=== PATIENT | male | born 1955 | race Caucasian/White ===

== ENCOUNTER 2017-07-16 10:03 | Outpatient (CLI) | payer BC ==
[2017-07-16 13:17] LABS: #Eosinphils 0.6 thou/uL (0.0-0.7); #Lymphocytes 2.1 thou/uL (1.20-3.40); #Monocytes 0.9 thou/uL (0.11-0.59); #Neutrophils 6.4 thou/uL (1.40-6.50); %Basophils 0.3 % (0.0-1.0); %Eosinophils 5.9 % (0.0-10.0); %Lymphocytes 20.7 % (21.0-51.0); %Monocytes 8.8 % (0.0-10.0); Hematocrit 47.2 % (42.0-52.0); Mean Platelet Volume 8.9 fL (7.4-10.4)
[2017-07-16 13:41] LABS: Anion Gap 12 mmol/L (10-20); BUN (Urea Nitrogen) 24 mg/dL (8.4-25.7); Calc. Creatinine Clearance 0 mL/min (70-130); Calcium 9.8 mg/dL (7.8-10.44); Carbon Dioxide 26 mmol/L (23-31); Chloride 107 mmol/L (98-107); Estimated GFR-MDRD 57
== END 2017-07-16 10:04 | disposition home or self-care (01) ==
LOC: LABBT 10:03
PROVIDERS: ATTEND Specialist
DX: Z01.818 Encounter for other preprocedural examination (principal); K42.9 Umbilical hernia without obstruction or gangrene
CPT/HCPCS: 80048; 85025; 93005; 93010

== ENCOUNTER 2017-07-24 08:19 | Day surgery (SDC) | payer BC ==
--- NOTE | 2017-07-15 11:37 | HP ---
HISTORY OF PRESENT ILLNESS: Jakob Argueta is a 62-year-old male patient, who has an umbilical hernia, r eferred by Dr. Krystian Griggs. The patient first noticed about 3 years ago, but it has become bothersom e. I have suggested the patient obtain a colonoscopy, but repair of this hernia is not contingent o n this. 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 TOBACCO: Two cigars a month. Cigarettes not used for more than 10 years. ALCOHOL: Rarely. 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 PAST MEDICAL HISTORY: Hypertension. ALLERGIES: None. FAMILY HISTORY: He has a family history of PENICILLIN allergy, but does not have an allergy himself . REVIEW OF SYSTEMS: Ten point noncontributory otherwise. MEDICATIONS: Lisinopril/hydrochlorothiazide 20/12.5 once a day, amlodipine 5 mg once a day. PHYSICAL EXAMINATION: VITAL SIGNS: Weight 209 pounds, 75 inches, 37 BMI, 149/90, 95, 98.4 degrees. HEAD, EYES, EARS, NOSE, AND THROAT: Unremarkable. LUNGS: Clear to auscultation. CARDIAC: Regular rate and rhythm without murmur or gallop. ABDOMEN: Soft, nontender. Umbilical hernia present, reducible partially could not reduce completel y. Umbilical hernia is large with thinned out skin over it. EXTREMITIES: Unremarkable. ASSESSMENT AND PLAN: 1. Umbilical hernia. We would recommend repair probably using mesh. Risk of infection, bleeding, reoperation, recurrence hernia were explained. Reports weight reduction discussed. Suggested colon oscopy, if he could obtain prior or after, he will obtain this probably before. 2. Hypertension. 3. Obesity.
[2017-07-16 10:29] VITALS: BMI 37.2
[2017-07-24] MEDS ORDERED: Ketorolac Tromethamine 30 MG/ML VIAL ONE (09:35)
[2017-07-24] MEDS ORDERED: Bupivacaine 0.25% HCL 30 ML VIAL ONE (10:06)
[2017-07-24] MEDS ORDERED: Lidocaine 1% w/Epinephrine 1:200K 30 ML VIAL ONE (10:06)
[2017-07-24] MEDS ORDERED: Fentanyl 100 MCG/2 ML VIAL ONE (10:08)
[2017-07-24] MEDS ORDERED: Ondansetron HCl/PF 4 MG/2 ML Vial ONE (10:28)
[2017-07-24] MEDS ORDERED: Dexamethasone 20 MG/5 ML VIAL ONE (10:28)
[2017-07-24] MEDS ORDERED: Metoclopramide HCl 10 MG/2 ML VIAL ONE (10:28)
[2017-07-24] MEDS ORDERED: Lidocaine 1% PF 5 ML VIAL ONE (10:28)
[2017-07-24] MEDS ORDERED: ePHEDrine/0.9% NaCl/PF SYRINGE 50 mg/10 ml ONE (10:28)
[2017-07-24] MEDS ORDERED: Propofol 200 MG/20 ML VIAL ONE (10:28)
[2017-07-24] MEDS ORDERED: Succinylcholine Chloride 20 MG/ML 10 ml SYRINGE FS ONE (10:28)
--- NOTE | 2017-07-24 13:23 | OP ---
DATE OF PROCEDURE: 07/24/2017 PREOPERATIVE DIAGNOSIS: Umbilical hernia. POSTOPERATIVE DIAGNOSIS: Umbilical hernia. PROCEDURE: Umbilical hernia repair with 6.4 cm PVP mesh. SURGEON: Dr. Rigo Berrios. ANESTHESIA: General, local 0.5% Marcaine with epinephrine mixed with 1% Xylocaine with epinephrine, 60 mL total mixture used. FINDINGS: Umbilical hernia. PROCEDURE IN DETAIL: Patient was taken to the operating room, where under general anesthesia abdome n was clipped of hair, prepared with ChloraPrep, draped in routine fashion. Infraumbilical incision made and the incision carried down through the skin and subcutaneous tissue. Umbilical hernia sac dissected free, excised, and fascial edges dissected free and controlled with Allis clamps. Subcuta neous tissue dissected free from the fascia superiorly and inferiorly. PVP mesh controlled with a s trap placed in the preperitoneal space and the hernia defect closed, [id number]-type fashion wi th interrupted sutures of #0 PDS pop-offs incorporating mesh into the fascial approximation. Subcut aneous tissues approximated with 3-0 Monocryl after apex of the umbilicus attached to the fascia wit h 3-0 Monocryl, skin approximated with continuous subcuticular suture of 4-0 Monocryl. Local anesth etic infiltrated into skin and subcutaneous tissue about the wound for postoperative pain control. DermaGlue applied.
== END 2017-07-24 12:30 | disposition home or self-care (01) ==
LOC: SDC 08:19
PROVIDERS: ATTEND Specialist
PROC: 0WUF0JZ Supplement Abdominal Wall with Synthetic Substitute, Open Approach (ICD-10-PCS; principal; 2017-07-24)
DX: K42.9 Umbilical hernia without obstruction or gangrene (principal); I10 Essential (primary) hypertension; Z88.0 Allergy status to penicillin; Z79.899 Other long term (current) drug therapy; Z96.652 Presence of left artificial knee joint; Z98.52 Vasectomy status
CPT/HCPCS: J0131; J1100; J1170; J1885; J2001; J2405; J2704; J2765; J3010; S0020

== ENCOUNTER 2017-09-12 14:28 | Outpatient (CLI) | payer BC ==
[2017-09-12 15:27] LABS: #Eosinphils 0.5 thou/uL (0.0-0.7); #Lymphocytes 2.1 thou/uL (1.20-3.40); #Monocytes 0.9 thou/uL (0.11-0.59); #Neutrophils 6.2 thou/uL (1.40-6.50); %Basophils 0.5 % (0.0-1.0); %Eosinophils 5.3 % (0.0-10.0); %Lymphocytes 21.5 % (21.0-51.0); %Monocytes 9.1 % (0.0-10.0); Bilirubin Negative (Negative); Blood, Urine Trace (Negative); Glucose, Urine (Dipstick) Negative (Negative); Hematocrit 47.2 % (42.0-52.0); Ketone, Urine Negative (Negative); Nitrite Negative (Negative); Protein, Urine (Dipstick) Negative (Neg-Trace); Red Blood Cell (RBC) Count 5.05 mill/uL (4.70-6.10); Urobilinogen 0.2 mg/dL (0.2-1.0); White Blood Cell (WBC) Count 9.7 thou/uL (4.8-10.8)
[2017-09-12 15:28] LABS: Bacteria/HPF None Seen HPF (None Seen); Hyaline Casts/LPF 0-3 HYALINE CAST LPF (0-3 Hyaline); RBC/HPF 0-3 HPF (0-3); Squamous Epithelial None Seen HPF (0-3); WBC/HPF 0-3 HPF (0-3)
[2017-09-12 15:34] LABS: PTT 34.3 SEC (22.9-36.1); Prothrombin Time 13.6 SEC (12.0-14.7)
[2017-09-12 15:46] LABS: Anion Gap 14 mmol/L (10-20); BUN (Urea Nitrogen) 22 mg/dL (8.4-25.7); Calc. Creatinine Clearance 0 mL/min (70-130); Carbon Dioxide 23 mmol/L (23-31); Chloride 106 mmol/L (98-107); Estimated GFR-MDRD 58
--- NOTE | 2017-09-12 16:11 | RAD ---
PA AND LATERAL VIEWS OF CHEST: Date: 09/12/17 HISTORY: Preoperative evaluation. FINDINGS: The heart size is normal. The lungs are well expanded without focal areas of consolidation, pneumotho rax, or pleural effusions. There are degenerative changes in the spine. IMPRESSION: No radiographic evidence of acute cardiopulmonary process. POS: [facility]
== END 2017-09-12 14:29 | disposition home or self-care (01) ==
LOC: LABBT 14:28
PROVIDERS: ATTEND Orthopaedic Surgery
DX: Z01.818 Encounter for other preprocedural examination (principal); T84.093A Other mechanical complication of internal left knee prosthesis, initial encounter; T84.54XA Infection and inflammatory reaction due to internal left knee prosthesis, initial encounter; Z87.39 Personal history of other diseases of the musculoskeletal system and connective tissue
CPT/HCPCS: 71020; 80048; 81001; 85025; 85610; 85730; 86850; 86900; 86901; 87081

== ENCOUNTER 2017-09-12 14:30 | Inpatient (IN) | payer BC, OTHER ==
[2017-09-17] MEDS ORDERED: Acetaminophen 325 MG TAB PO PRN (08:57)
[2017-09-17] MEDS ORDERED: Zolpidem Tartrate 5 MG TAB PO PRN ×2 (08:57→10:20)
[2017-09-17] MEDS ORDERED: Ondansetron HCl/PF 4 MG/2 ML Vial IVP PRN ×3 (08:57→14:14)
[2017-09-17] MEDS ORDERED: traMADol HCl 50 MG TAB PO PRN ×3 (08:57→10:20)
[2017-09-17] MEDS ORDERED: Fentanyl 100 MCG/2 ML VIAL SLOW IVP PRN ×2 (08:57)
[2017-09-17] MEDS ORDERED: diphenhydrAMINE 25 MG CAP PO PRN (08:57)
[2017-09-17] MEDS ORDERED: HYDROcodone/Acetaminophen 10/325 mg Tablet PO PRN ×3 (08:57→10:20)
[2017-09-17] MEDS ORDERED: Promethazine HCl 25 MG/ML VIAL IM PRN ×3 (08:57→14:14)
[2017-09-17] MEDS ORDERED: Tranexamic Acid 1,000 MG in Sodium Chloride 0.9% 100 ML IVPB SCH (09:00)
[2017-09-17] MEDS ORDERED: Vancomycin HCl 2 GM, Admixture Fee 1 EACH in Sodium Chloride 0.9% 500 ML IVPB SCH (09:00)
[2017-09-17] MEDS ORDERED: Tranexamic Acid 1,000 MG/100 ML BAG ONE ×2 (09:14→14:47)
[2017-09-17] MEDS ORDERED: Levofloxacin 500 mg/D5W 100 ml Premix Bag ONE (09:15)
[2017-09-17] MEDS ORDERED: Midazolam HCl 2 mg/2 ml Vial ONE (09:47)
[2017-09-17] MEDS ORDERED: Fentanyl 100 MCG/2 ML VIAL ONE ×4 (09:47→15:22)
[2017-09-17] MEDS ORDERED: Ropivacaine 0.2% HCl/PF 20 ML ONE (09:47)
[2017-09-17] MEDS ORDERED: Lisinopril/Hydrochlorothiazide 20 mg/12.5 mg Tablet PO SCH ×2 (10:00→17:15)
[2017-09-17] MEDS ORDERED: Ropivacaine HCl/PF 250 ML in Premix Bag 1 BAG NERVE BLCK SCH (10:20)
[2017-09-17] MEDS ORDERED: Fentanyl 100 MCG/2 ML VIAL IV PRN (10:20)
[2017-09-17] MEDS ORDERED: Ketorolac Tromethamine 30 MG/ML VIAL IVP PRN (10:20)
[2017-09-17] MEDS ORDERED: Ketorolac Tromethamine 30 MG/ML VIAL IVP SCH (14:00)
[2017-09-17] MEDS ORDERED: Promethazine HCl 25 MG/ML VIAL SLOW IVP PRN (14:14)
--- NOTE | 2017-09-17 14:25 | OP ---
DATE OF PROCEDURE: 09/17/2017 PREOPERATIVE DIAGNOSIS: Failed left total knee. POSTOPERATIVE DIAGNOSIS: Failed left total knee. SURGEON: Robert Quinonez M.D. CASE MANAGEMENT ASSISTANT: Juan Francisco M.D. BLOOD LOSS: Minimal. SPECIMEN: Frozen section cultures. Frozen section revealed a chronic inflammation, but no acute inf lammatory cells, no eosinophils, no neutrophils. IMPLANTS USED: Sintia Triathlon total stabilized revision size 4 femur, 100 x 15 mm stem, a 50 x 12 mm tibial stem and a 4 tibia tray, a 16 mm total stabilized polyethylene. PROCEDURE IN DETAIL: The patient was taken to the operating where general anesthesia was induced. Left leg was prepped and draped in the usual sterile fashion. After exsanguination, tourniquet was i nflated to 300 mmHg. I opened up the old scar. His knee had been opened up several times in the past . This was somewhat difficult. I created tissue planes for later closure. The knee was entered. T here was quite a bit of an effusion, fluid was clear. I performed a major synovectomy of the entire suprapatellar pouch and recreated the gutters. This tissue was sent for pathologic exam, results are mentioned above. I meticulously removed the femur and the tibia. The tibia sized and found to be a size 4. I reamed proximally and distally as indicated above and placed a tibial tray without buildu ps that shows a 13 and then bumped up to 16 mm polyethylene. I used the femoral trial cutting block to refractory repairer my rotation of the femur. I made sure the flexion gap was tight then I adjusted the extensi on gap accordingly, pinned the femur and cut, only required 1 distal buildup medially, it was a 10 mm buildup. All the rest of the implant was sitting on very good bone. The trials were removed and ir rigation was performed. The bone was dried. Implants were cemented into place. The permanent tibia l tray was impacted along with the retaining pin. The patella was in good condition. The patella tr acked nicely. I did not see any reason to revise the patella. This operation did require a partial quadricep snip and this was repaired with #2 FiberWire suture in the patellar tendon, the quadriceps tendon and medial retinaculum was then repaired with #2 Vicryl and #2 Quill, subcutaneous closed with 0 Quill, skin was closed with Prolene 2-0 and a sterile dressing was applied. TOURNIQUET TIME: 1 hour and 49 minutes. COMPLICATIONS: There were no complications.
[2017-09-17] MEDS ORDERED: Ketorolac Tromethamine 30 MG/ML VIAL ONE (15:01)
[2017-09-17] MEDS ORDERED: Bupivacaine 0.5% 10 ML VIAL ONE (15:01)
--- NOTE | 2017-09-17 15:49 | RAD ---
LEFT KNEE TWO VIEWS: History: 62-year-old male recent post-operative total knee replacement. IMPRESSION: Unremarkable recent total knee replacement changes. No evidence for dislocation or periprosthetic fra cture. POS: [facility]
[2017-09-17] MEDS ORDERED: PHENYLEPHRINE-NS 100 MCG/ML 10 ML SYRINGE ONE (16:33)
[2017-09-17] MEDS ORDERED: Ondansetron HCl/PF 4 MG/2 ML Vial ONE (16:33)
[2017-09-17] MEDS ORDERED: Propofol 200 MG/20 ML VIAL ONE (16:33)
[2017-09-17] MEDS ORDERED: Amlodipine 5 MG TAB PO SCH (17:15)
[2017-09-17] MEDS: Senokot S 8.6-50 MG TAB PO SCH ×2 (17:34→21:02)
[2017-09-17] MEDS: Aspirin 325 MG TAB PO SCH ×2 (17:34→21:02)
[2017-09-17] MEDS: Multivitamin W/ Minerals 1 TAB PO SCH (17:34)
[2017-09-17] MEDS: Ferrous Gluconate 324 MG TAB PO SCH ×2 (17:34→21:02)
[2017-09-17] MEDS: Amlodipine 5 MG TAB PO SCH (17:34)
[2017-09-17] MEDS: Sodium Chloride 0.9% 1,000 ML IV SCH ×2 (17:37→20:00)
[2017-09-17] MEDS ORDERED: Vancomycin HCl 1.5 GM in Sodium Chloride 0.9% 250 ML 300 ML IVPB SCH (21:00)
[2017-09-17] MEDS: HYDROcodone/Acetaminophen 10/325 mg Tablet PO PRN (23:23)
[2017-09-18] MEDS: Sodium Chloride 0.9% 1,000 ML IV SCH ×3 (05:05→21:14)
[2017-09-18 05:39] LABS: Mean Platelet Volume 8.3 fL (7.4-10.4); White Blood Cell (WBC) Count 11.3 thou/uL (4.8-10.8)
[2017-09-18] MEDS: HYDROcodone/Acetaminophen 10/325 mg Tablet PO PRN ×4 (09:10→21:40)
[2017-09-18] MEDS: Senokot S 8.6-50 MG TAB PO SCH ×2 (09:10→21:05)
[2017-09-18] MEDS: Aspirin 325 MG TAB PO SCH ×2 (09:10→21:05)
[2017-09-18] MEDS: Lisinopril/Hydrochlorothiazide 20 mg/12.5 mg Tablet PO SCH (09:10)
[2017-09-18] MEDS: Multivitamin W/ Minerals 1 TAB PO SCH (09:10)
[2017-09-18] MEDS: Ferrous Gluconate 324 MG TAB PO SCH ×2 (09:10→21:05)
[2017-09-18] MEDS: Amlodipine 5 MG TAB PO SCH (09:10)
[2017-09-18 11:28] VITALS: BMI 34.7
--- NOTE | 2017-09-18 12:23 | PDOC.PN ---
- Subjective Encounter Start Date: 09/18/17 Encounter Start Time: 09:00 Pt did well overnight, pain well controlled. Pt anxious about the pain associated with getting up our of bed. Described having subjective fevers and sweats overnight. no n/v/D/C, no CP, no SOB. 10 point ROs performed and neg for all systems except as above - Objective Resuscitation Status: FULL MAR Reviewed: Yes Vital Signs & Weight: Vital Signs (12 hours) Temp Pulse Resp BP Pulse Ox 09/18/17 09:10 78 09/18/17 08:00 98.1 F 78 16 133/72 95 Weight Admit Weight 270 lb Weight 270 lb I&O: 09/17/17 09/18/17 09/19/17 06:59 06:59 06:59 Intake Total 2580 Output Total 900 Balance 1680 Result Diagrams: 09/18/17 04:42 Radiology Reviewed by me: Yes EKG Reviewed by me: Yes Phys Exam - Physical Examination Constitutional: NAD HEENT: PERRLA, moist MMs, sclera anicteric, oral pharynx no lesions Neck: no nodes, no JVD, supple, full ROM Respiratory: no wheezing, no rales, no rhonchi, clear to auscultation bilateral Cardiovascular: RRR, no significant murmur, no rub Gastrointestinal: soft, non-tender, no distention, positive bowel sounds Musculoskeletal: no edema, pulses present Neurological: non-focal, normal sensation, moves all 4 limbs Lymphatic: no nodes Psychiatric: normal affect, A&O x 3 Skin: no rash, normal turgor, cap refill <2 seconds Dx/Plan (1) HTN (hypertension) Code(s): I10 - ESSENTIAL (PRIMARY) HYPERTENSION Status: Acute Qualifiers: Hypertension type: essential hypertension Qualified Code(s): I10 - Essential (primary) hypertension Comment: controlled, CCM (2) Mechanical failure of prosthetic joint Code(s): T84.019A - BROKEN INTERNAL JOINT PROSTHESIS, UNSP SITE, INIT ENCNTR Status: Chronic Qualifiers: Encounter type: sequela Qualified Code(s): T84.019S - Broken internal joint prosthesis, unspecified site, sequela Comment: s/p removal and replacement/revision (3) History of infection of total joint prosthesis of knee Code(s): Z87.39 - PERSONAL HISTORY OF DISEASES OF THE MS SYS AND CONN TISS Status: Chronic Comment: strep infection. treated and resolved. PRo-op cultures now ar enegative, intraop cultures neg so far. Streamline abx to ancef alone (4) Status post revision of total replacement of left knee Code(s): Z96.652 - PRESENCE OF LEFT ARTIFICIAL KNEE JOINT Status: Acute - Plan cont current plan of care, plan discussed w/ family, continue antibiotics, PT/OT , 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
[2017-09-18] MEDS ORDERED: CEFAZOLIN 2 GM in Sodium Chloride 0.9% 100 ML IVPB SCH (14:00)
[2017-09-18] MEDS: CEFAZOLIN/Water 2 GM/20 ML SYRINGE SLOW IVP SCH ×2 (15:51→21:05)
--- NOTE | 2017-09-18 17:20 | CON ---
DATE OF CONSULTATION: 09/17/2017 TIME OF SERVICE: 1810 hours. REASON FOR CONSULTATION: Medical management. REQUESTING: Robert Quinonez M.D. PRIMARY CARE PHYSICIAN: Krystian Griggs D.O. HISTORY OF PRESENT ILLNESS: Mr. Argeuta is a pleasant 62-year-old male with a history of hypertension a nd failed left total knee arthroplasty. The patient had his original knee replacement done back in 11/2013. Nine months later, he had abrupt onset of increased redness and swelling. He had incision a nd drainage and cultures grew out a "strep." He stayed at the antibiotics for a year comprising of a couple of months of IV followed by oral antibiotic managed by Dr. Vera over the [facility]. He did have second surgery at that time with a washout and exchange of polyethylene components. He has done well since then, but his knees continued to bother him. He changed insurances and thus, started going to see Dr. Griggs. He subsequently was referred to Dr. Robert Quinonez for consideration o f revision. Dr. Quinonez did take cultures from the knee in late August, and cultures remain negative. He also o btained intraoperative cultures and has the patient on broad antibiotics postop period. The patient denies any fevers or chills, no chest pain or shortness of breath, no nausea or vomiting. He is feel ing okay but currently has a block in. Currently, on vancomycin and levofloxacin. PAST MEDICAL HISTORY: 1. Hypertension. 2. Knee history as above. PAST SURGICAL HISTORY: 1. Umbilical hernia repair with mesh in 07/2017. 2. Left total knee arthroplasty in 09/2014 with washout and exchange of components in 06/2015. 3. He did have a vasectomy back in 1989. HOME MEDICATIONS: 1. Amlodipine 5 mg p.o. q.a.m. 2. Lisinopril/HCTZ 25/09.5 one p.o. daily. 3. Ibuprofen as needed. ALLERGIES: PENICILLIN, reaction is unknown. He is not sure he ever actually had a reaction, but his parents were allergic. FAMILY HISTORY: Negative for clotting or bleeding disorder, no immune dysfunction. His dad had hear t failure and end-stage renal disease. SOCIAL HISTORY: Significant for 3 cigars per month. He quit smoking cigarettes after a 1.5 pack per day for 30-year history about 10 years ago. 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 He uses rare alco hol but no IV drugs. REVIEW OF SYSTEMS: A 10-point review of systems was performed and was negative for all other systems except as stated as per HPI. PHYSICAL EXAMINATION: VITAL SIGNS: Temperature 97.9, pulse 69, blood pressure 143/79. He is satting 96% on room air at pr esent. GENERAL: He is awake. He is alert. He is oriented x3. He is a well-developed, well-nourished obes e white male appears to be in no acute distress. HEENT: Normocephalic, atraumatic. His pupils are equal and reactive bilaterally to light. His mois t membranes are normal. There are no lesions. No thrush. NECK: Supple without lymphadenopathy, JVD, or thyromegaly. LUNGS: Clear. He has good air movements. Symmetrical chest excursion. There is no prolonged expir atory phase. There are no wheezes, rales, or rhonchi. CARDIOVASCULAR: Normal S1 and S2. He has normal cardiac with a regular rhythm. He has no audible m urmurs. ABDOMEN: Soft, is obese, is nontender, and nondistended. He has good bowel sounds. There is no juju ound, rigidity, or guarding. I cannot palpate the liver or spleen. EXTREMITIES: There is no cyanosis, no clubbing. His left knee is in a postop dressing without any e vidence of strike through. Right leg is normal. SKIN: Warm, moist, and well perfused. There are no rashes or lesions. MUSCULOSKELETAL: Shows large joints to be normal to inspection with the exception of the left knee. The remainder of his joints has no inflammation and no palpable effusions. NEUROLOGIC: Cranial nerves II through XII are grossly intact without any focal neurologic deficits. He has normal speech pattern and 5/5 strength. LABORATORY DATA: Basic metabolic profile on 09/12/2017 was normal, creatinine 1.26, BUN of 22, potas sium 3.9, and glucose of 94. Calcium was normal at 10. CBC showed a white count of 9.7, hemoglobin 15.5, hematocrit of 47.2, and platelet count of 344,000. 09/02/2017, knee culture is negative; 09/17/2017, knee culture is pending. RADIOGRAPHS: A chest x-ray on 09/12/2017 showed no acute disease and knee x-ray showed status post t otal knee arthroplasty revision. ASSESSMENT AND PLAN: 1. Hypertension, essential. Continue home medications. We will start lisinopril/HCTZ in the rosario g. 3. Failed left total knee arthroplasty, status post left total knee revision. The patient failed du e to infection and sequelae thereof. His preop and intraoperative cultures have remained negative to date. We will continue him on antibiotics. I do believe he has a true PENICILLIN allergy, we will transition him over to Ancef tomorrow when I am around to watch. 4. Ongoing tobacco abuse: Much improved than prior. I will continue to monitor.
[2017-09-19 05:46] LABS: Mean Platelet Volume 8.1 fL (7.4-10.4); Red Blood Cell (RBC) Count 4.18 mill/uL (4.70-6.10); White Blood Cell (WBC) Count 11.5 thou/uL (4.8-10.8)
[2017-09-19] MEDS: CEFAZOLIN/Water 2 GM/20 ML SYRINGE SLOW IVP SCH (07:00)
[2017-09-19] MEDS: HYDROcodone/Acetaminophen 10/325 mg Tablet PO PRN ×4 (07:00→21:17)
[2017-09-19] MEDS: Lisinopril/Hydrochlorothiazide 20 mg/12.5 mg Tablet PO SCH (09:49)
[2017-09-19] MEDS: Aspirin 325 MG TAB PO SCH ×2 (09:49→21:18)
[2017-09-19] MEDS: Amlodipine 5 MG TAB PO SCH (09:49)
[2017-09-19] MEDS: Senokot S 8.6-50 MG TAB PO SCH ×2 (09:50→21:18)
[2017-09-19] MEDS: Ferrous Gluconate 324 MG TAB PO SCH ×2 (09:50→21:18)
[2017-09-19] MEDS: Multivitamin W/ Minerals 1 TAB PO SCH (10:11)
--- NOTE | 2017-09-19 10:57 | PDOC.PN ---
- Subjective Encounter Start Date: 09/19/17 Encounter Start Time: 08:30 Pt doing better, did okay with PT, but brace left on, and not ready to go home. Dr Quinonez keeping until tomorrow. Cultures remain negative, path neg for abscess or neutrophilic infiltration + for macrocytic/FB reaction No F/C, no N/V/D/C, felt feverish then light sweats once last evneing. Tolerating Ancef without rash or itching 10 point ROS performed and neg for all systems except as above - Objective Resuscitation Status: full MAR Reviewed: Yes Vital Signs & Weight: Vital Signs (12 hours) Temp Pulse Resp BP Pulse Ox 09/19/17 07:50 98.2 F 77 18 150/76 H 97 09/19/17 07:25 98.2 F 77 18 150/76 H 97 09/19/17 04:00 98.4 F 73 20 144/80 H 93 L 09/19/17 02:45 98.0 F 09/18/17 23:16 98.3 F 78 19 150/84 H 93 L Weight Admit Weight 270 lb Weight 270 lb I&O: 09/18/17 09/19/17 09/20/17 06:59 06:59 06:59 Intake Total 2580 980 Output Total 900 950 700 Balance 1680 30 -700 Result Diagrams: 09/19/17 05:25 Radiology Reviewed by me: Yes EKG Reviewed by me: Yes Phys Exam - Physical Examination Constitutional: NAD HEENT: PERRLA, moist MMs, sclera anicteric, oral pharynx no lesions Neck: no nodes, no JVD, supple, full ROM Respiratory: no wheezing, no rales, no rhonchi, clear to auscultation bilateral Cardiovascular: RRR, no significant murmur, no rub Gastrointestinal: soft, non-tender, no distention, positive bowel sounds Musculoskeletal: no edema, pulses present Neurological: non-focal, normal sensation, moves all 4 limbs Lymphatic: no nodes Psychiatric: normal affect, A&O x 3 Skin: no rash, normal turgor, cap refill <2 seconds Dx/Plan (1) HTN (hypertension) Code(s): I10 - ESSENTIAL (PRIMARY) HYPERTENSION Status: Acute Qualifiers: Hypertension type: essential hypertension Qualified Code(s): I10 - Essential (primary) hypertension Comment: controlled, CCM (2) Mechanical failure of prosthetic joint Code(s): T84.019A - BROKEN INTERNAL JOINT PROSTHESIS, UNSP SITE, INIT ENCNTR Status: Chronic Qualifiers: Encounter type: sequela Qualified Code(s): T84.019S - Broken internal joint prosthesis, unspecified site, sequela Comment: s/p removal and replacement/revision (3) History of infection of total joint prosthesis of knee Code(s): Z87.39 - PERSONAL HISTORY OF DISEASES OF THE MS SYS AND CONN TISS Status: Chronic Comment: strep infection. treated and resolved. Pre-op cultures are negative, intraop cultures neg so far. Path negative for infection. stop ancef (4) Status post revision of total replacement of left knee Code(s): Z96.652 - PRESENCE OF LEFT ARTIFICIAL KNEE JOINT Status: Acute - Plan cont current plan of care, PT/OT, 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
[2017-09-19] MEDS: Sodium Chloride 0.9% 1,000 ML IV SCH ×2 (11:37→21:22)
[2017-09-20 05:32] LABS: Hematocrit 40.1 % (42.0-52.0); Red Blood Cell (RBC) Count 4.18 mill/uL (4.70-6.10); White Blood Cell (WBC) Count 10.5 thou/uL (4.8-10.8)
[2017-09-20] MEDS: HYDROcodone/Acetaminophen 10/325 mg Tablet PO PRN ×2 (08:04→13:52)
[2017-09-20] MEDS: Sodium Chloride 0.9% 1,000 ML IV SCH (08:06)
[2017-09-20] MEDS: Senokot S 8.6-50 MG TAB PO SCH (09:14)
[2017-09-20] MEDS: Aspirin 325 MG TAB PO SCH (09:14)
[2017-09-20] MEDS: Multivitamin W/ Minerals 1 TAB PO SCH (09:14)
[2017-09-20] MEDS: Amlodipine 5 MG TAB PO SCH (09:14)
[2017-09-20] MEDS: Ferrous Gluconate 324 MG TAB PO SCH (09:15)
[2017-09-20] MEDS: Lisinopril/Hydrochlorothiazide 20 mg/12.5 mg Tablet PO SCH (09:15)
--- NOTE | 2017-09-20 10:49 | PDOC.PN ---
- Subjective Encounter Start Date: 09/20/17 Encounter Start Time: 09:20 Feeling better, no fevers or chills, no N/V/D/C, tolerating therapy. No CP or SOB. discharging today. Cx negative, path negative for infection 10 point ROS performed and neg for all systems except as per HPI - Objective MAR Reviewed: Yes Vital Signs & Weight: Vital Signs (12 hours) Temp Pulse Resp BP Pulse Ox 09/20/17 08:00 98.4 F 82 16 91/57 L 99 09/20/17 04:42 98.4 F 71 18 128/85 100 09/20/17 00:06 98.3 F 68 20 121/75 96 Weight Admit Weight 270 lb Weight 270 lb I&O: 09/19/17 09/20/17 09/21/17 06:59 06:59 06:59 Intake Total 980 940 Output Total 950 1460 Balance 30 -520 Result Diagrams: 09/20/17 05:02 Radiology Reviewed by me: No EKG Reviewed by me: No Phys Exam - Physical Examination Constitutional: NAD HEENT: PERRLA, moist MMs, sclera anicteric, oral pharynx no lesions Neck: no nodes, no JVD, supple, full ROM Respiratory: no wheezing, no rales, no rhonchi, clear to auscultation bilateral Cardiovascular: RRR, no significant murmur, no rub Gastrointestinal: soft, non-tender, positive bowel sounds Musculoskeletal: no edema, pulses present Neurological: non-focal, normal sensation, moves all 4 limbs Lymphatic: no nodes Psychiatric: normal affect, A&O x 3 Skin: no rash, normal turgor, cap refill <2 seconds Dx/Plan (1) HTN (hypertension) Code(s): I10 - ESSENTIAL (PRIMARY) HYPERTENSION Status: Acute Qualifiers: Hypertension type: essential hypertension Qualified Code(s): I10 - Essential (primary) hypertension Comment: controlled, CCM (2) Mechanical failure of prosthetic joint Code(s): T84.019A - BROKEN INTERNAL JOINT PROSTHESIS, UNSP SITE, INIT ENCNTR Status: Chronic Qualifiers: Encounter type: sequela Qualified Code(s): T84.019S - Broken internal joint prosthesis, unspecified site, sequela Comment: s/p removal and replacement/revision (3) History of infection of total joint prosthesis of knee Code(s): Z87.39 - PERSONAL HISTORY OF DISEASES OF THE MS SYS AND CONN TISS Status: Chronic Comment: strep infection. treated and resolved. Pre-op cultures are negative, intraop cultures neg so far. Path negative for infection. stop ancef (4) Status post revision of total replacement of left knee Code(s): Z96.652 - PRESENCE OF LEFT ARTIFICIAL KNEE JOINT Status: Acute - Plan cont current plan of care, PT/OT * . will sign off in anticipation of discharge today. Please call me personally for specific needs
[2017-09-20 13:04] VITALS: BP 121/74; TEMP 98
== END 2017-09-20 14:45 | disposition home or self-care (01) | DRG 468 ==
LOC: SJJU 09-17 07:51 → SURG B 09-17 16:38
PROVIDERS: ADMIT Orthopaedic Surgery; ATTEND Orthopaedic Surgery
PROC: 0SPD0JZ Removal of Synthetic Substitute from Left Knee Joint, Open Approach (ICD-10-PCS; principal; 2017-09-17)
PROC: 0SRD069 Replacement of Left Knee Joint with Oxidized Zirconium on Polyethylene Synthetic Substitute, Cemented, Open Approach (ICD-10-PCS; 2017-09-17)
PROC: 3E0T3BZ Introduction of Anesthetic Agent into Peripheral Nerves and Plexi, Percutaneous Approach (ICD-10-PCS; 2017-09-17)
DX: T84.093A Other mechanical complication of internal left knee prosthesis, initial encounter (principal); I10 Essential (primary) hypertension; Z87.39 Personal history of other diseases of the musculoskeletal system and connective tissue; Y83.8 Other surgical procedures as the cause of abnormal reaction of the patient, or of later complication, without mention of misadventure at the time of the procedure; F17.210 Nicotine dependence, cigarettes, uncomplicated; E78.5 Hyperlipidemia, unspecified; Z88.0 Allergy status to penicillin; E66.9 Obesity, unspecified; Z68.36 Body mass index [BMI] 36.0-36.9, adult
CPT/HCPCS: 36415; 85027; 87070; 87077; 87186; 87205; 88305; 88331; C1713; C1776; G8978-GP-CL; G8979-GP-CJ; J1885; J1956; J2250; J2405; J2704; J2795; J3010; J3370; J3490; J7050

== ENCOUNTER → 2017-09-25 | Day surgery (SDC) | payer BC, OTHER ==
[~2017-09-25] MED LIST: Heparin 1,000 UNITS/ML VIAL ONE
--- NOTE | 2017-09-25 16:20 | SPC ---
ULTRASOUND AND FLUOROSCOPIC GUIDED PICC LINE PLACEMENT: HISTORY: Need for long-term antibiotics. COMPARISON: None. TECHNIQUE: The patient was brought to the fluoroscopy suite. All questions were answered. The patient's left arm was prepped and draped in normal sterile fashion. Using ultrasound guidance, the left cephalic vein was accessed with a micropuncture set. Using fluoroscopic guidance. A wire wa s placed to the IVC. Through a peelaway sheath, a 55 cm PICC was placed with tip at the inferior SVC . The patient tolerated the procedure well. No complication. IMPRESSION: Technically successful PICC line placement. Fluoro time 1 minute. POS: [facility]
== END ==
LOC: SPEC 12:39
PROVIDERS: ATTEND Internal Medicine Infectious Disease
PROC: 06H033Z Insertion of Infusion Device into Inferior Vena Cava, Percutaneous Approach (ICD-10-PCS; principal; 2017-09-25)
DX: T84.7XXD Infection and inflammatory reaction due to other internal orthopedic prosthetic devices, implants and grafts, subsequent encounter (principal); Z88.0 Allergy status to penicillin; Z96.652 Presence of left artificial knee joint; Z98.890 Other specified postprocedural states
CPT/HCPCS: 36569; C1751; J1644

== ENCOUNTER 2018-05-27 08:12 | Inpatient (IN) | payer BC ==
[2018-05-26 15:12] VITALS: BMI 35.9
[2018-05-27] MEDS ORDERED: Sodium Chloride 0.9% 100 ML ONE (09:00)
[2018-05-27] MEDS ORDERED: Midazolam HCl 2 mg/2 ml Vial ONE (10:05)
[2018-05-27] MEDS ORDERED: Fentanyl 100 MCG/2 ML VIAL ONE (10:05)
[2018-05-27] MEDS ORDERED: Dexamethasone 4 mg/ml Vial ONE (10:05)
[2018-05-27] MEDS ORDERED: Ondansetron HCl/PF 4 MG/2 ML Vial IVP PRN ×3 (10:38→11:09)
[2018-05-27] MEDS ORDERED: Promethazine HCl 25 MG/ML VIAL IM PRN ×3 (10:38→11:09)
[2018-05-27] MEDS ORDERED: Promethazine HCl 25 MG/ML VIAL SLOW IVP PRN (10:38)
[2018-05-27] MEDS ORDERED: traMADol HCl 50 MG TAB PO PRN ×3 (10:45→11:09)
[2018-05-27] MEDS ORDERED: Ropivacaine HCl/PF 250 ML in Premix Bag 1 BAG NERVE BLCK SCH (10:45)
[2018-05-27] MEDS ORDERED: HYDROcodone/Acetaminophen 10/325 mg Tablet PO PRN (10:45)
[2018-05-27] MEDS ORDERED: Ketorolac Tromethamine 30 MG/ML VIAL IVP PRN (10:45)
[2018-05-27] MEDS ORDERED: Zolpidem Tartrate 5 MG TAB PO PRN ×2 (10:45→11:09)
[2018-05-27] MEDS ORDERED: Fentanyl 100 MCG/2 ML VIAL IV PRN (10:46)
[2018-05-27] MEDS ORDERED: diphenhydrAMINE 25 MG CAP PO PRN (11:09)
[2018-05-27] MEDS ORDERED: Acetaminophen 325 MG TAB PO PRN (11:09)
[2018-05-27] MEDS ORDERED: Tobramycin Sulfate 1.2 GM VIAL ONE ×2 (11:16→11:31)
[2018-05-27] MEDS ORDERED: Bupivacaine HCl 0.5%/Epinephrine 1:200,000/PF 30 ml Vial ONE (13:13)
[2018-05-27] MEDS ORDERED: Ropivacaine 0.5% HCl/PF (150 MG/30 ML VIAL) ONE (13:13)
[2018-05-27] MEDS ORDERED: Lidocaine 1% PF 5 ML VIAL ONE (14:47)
[2018-05-27] MEDS ORDERED: ePHEDrine/0.9% NaCl/PF SYRINGE 50 mg/10 ml ONE (14:47)
[2018-05-27] MEDS ORDERED: PROPOFOL 200 MG/20 ML VIAL ONE (14:47)
[2018-05-27] MEDS ORDERED: Heparin 1,000 UNITS/ML VIAL ONE (15:43)
--- NOTE | 2018-05-27 15:54 | RAD ---
LEFT KNEE TWO VIEWS: 05/27/18 HISTORY: Knee replacement. FINDINGS: Revision of knee prosthesis is apparent. Femoral articular surface metallic prosthesis is in place wi thout perihardware lucency. Radiopaque cement is apparent within the femoral and tibial shafts. Soft tissue and intracapsular gas. IMPRESSION: Left knee prosthesis is in good radiographic position. POS: [facility]
[2018-05-27] MEDS: Sodium Chloride 0.9% 1,000 ML IV SCH ×2 (17:55→22:28)
[2018-05-27] MEDS: Ferrous Gluconate 324 MG TAB PO SCH (22:27)
[2018-05-27] MEDS: Aspirin 81 mg Enteric Coated Tablet PO SCH (22:27)
[2018-05-27] MEDS: Senokot S 8.6-50 MG TAB PO SCH (22:28)
[2018-05-27] MEDS ORDERED: Vancomycin HCl 1.5 GM in Sodium Chloride 0.9% 250 ML 300 ML IVPB SCH (23:00)
--- NOTE | 2018-05-27 23:06 | OP ---
DATE OF PROCEDURE: 05/27/2018 PREOPERATIVE DIAGNOSIS: Infected left total knee. POSTOPERATIVE DIAGNOSIS: Revision of left infected total knee. IMPLANTS USED: Sintia Triathlon 4 femur, 4 tibia, and this was a 16 mm thick all poly tibia. White la was removed, but not replaced. SURGEON: Robert Quinonez M.D. HOSPITAL FELLOW: Avinash Marquez PA-C. BLOOD LOSS: Minimal. SPECIMEN: None. Large amount of synovium sent for culture and for pathologic diagnosis. TOURNIQUET TIME: 122 minutes. DRAINS: None. COMPLICATIONS: None. DESCRIPTION OF PROCEDURE: The patient is taken to the operating room where general anesthesia was in duced. Left leg was prepped and draped in the usual sterile fashion. After exsanguination, tourniqu et was inflated to 300 mmHg. We meticulously opened the old scar and created flaps for later closure . A parapatellar arthrotomy was performed. Patella was everted. Extensive synovectomy was performe d all the way down to bone. A large amount of very inflamed tissue was removed. It should be noted that knee was full of purulent material and white coagulated debris. The implants were removed with some difficulty and with great care using oscillating saws and osteotomes. I then used the Jefferson revision set to pick cement from the tibia and removed the tibial cement restrictor plug as well. On ce this was done, the femur and tibia were reamed up to 18 mm to remove all slime membrane from the f emur. The tibia really did not have any significant contamination distally. I then created to [address] in the femur. This was prepared with tobramycin and vancomycin powder. These were placed in the tibia and the femur. I then cemented all polyethylene tibial implant with slight medial buildup, 16 mm build this up so that the knee could be placed in a somewhat flexion contractu re. There is obviously no posterior cruciate ligament in this patient due to his previous revision s urgery and wanted to have some stability to prevent hyperextension. Femur was placed with the medial buildup as well using antibiotic treated cement. This was done in 3 separate stages, bone plugs, ti pablo and then femur. After this was completed, additional irrigation was performed. About 8 liters o f irrigation was used in total. The retinaculum was repaired with #2 Vicryl and #2 Quill, subcutaneo us closed with 0 Quill, skin was closed with 2-0 Prolene. Tourniquet was dropped. Sterile dressing was applied and patient placed in knee immobilizer. POSTOPERATIVE PLAN: no range of motion of the knee, will be ambulatory in a knee immobilizer a nd we will keep the knee extended to achieved skin healing. Physical therapy will be started a fter at that time. Dr. Milan will be consulted from Infectious Disease, pending outcome of cultures. He will determine appropriate antibiotics and duration. I have also ordered a PICC line.
[2018-05-28 04:30] LABS: Hemoglobin 13.5 g/dL (14.0-18.0); Mean Corpuscular HGB CONC 33.4 g/dL (32.0-36.0); Mean Corpuscular Hemoglobin 31.3 pg (27.0-31.0); Mean Corpuscular Volume 93.8 fL (78.0-98.0); Mean Platelet Volume 7.6 fL (7.4-10.4); Platelet Count 313 thou/uL (130-400); RBC Distribution Width 12.9 % (11.5-14.5); Red Blood Cell (RBC) Count 4.32 mill/uL (4.70-6.10); White Blood Cell (WBC) Count 16.5 thou/uL (4.8-10.8)
[2018-05-28] MEDS: Sodium Chloride 0.9% 1,000 ML IV SCH ×2 (07:28→23:34)
[2018-05-28] MEDS: Aspirin 81 mg Enteric Coated Tablet PO SCH ×2 (07:53→23:00)
[2018-05-28] MEDS: Ferrous Gluconate 324 MG TAB PO SCH ×2 (07:53→22:59)
[2018-05-28] MEDS: Amlodipine 10 MG TAB PO SCH (07:54)
[2018-05-28] MEDS: Senokot S 8.6-50 MG TAB PO SCH ×2 (07:54→23:32)
[2018-05-28] MEDS: Lisinopril/Hydrochlorothiazide 20 mg/12.5 mg Tablet PO SCH (07:54)
[2018-05-28] MEDS: Atorvastatin Calcium 40 MG TAB PO SCH (07:54)
[2018-05-28] MEDS: Multivitamin W/ Minerals 1 TAB PO SCH (07:55)
--- NOTE | 2018-05-28 10:50 | SPC ---
LEFT UPPER EXTREMITY PICC LINE PLACEMENT WITH ULTRASOUND GUIDANCE: Date: 05/28/18 HISTORY: Infection. IV antibiotics required. COMPARISON: None. EXPOSURE: 779 mGy*cm^2. 0.5 minutes. FINDINGS: Successful left upper extremity PICC line placement with ultrasound guidance. Trim length is 49 cm. S ama lumen catheter terminates in the right atrium. Catheter flushes and aspirates without difficult y. TECHNIQUE: Consent obtained to perform a left upper extremity PICC line placement with ultrasound guidance. Left arm was prepped and draped in the sterile fashion. 1% lidocaine, buffered with sodium bicarbonate, u sed for local anesthesia. Ultrasound guidance and micropuncture needle were used to cannulae the basi lic vein. A 0.18 guidewire was advanced through the needle to the level of the superior vena cava. Un jabari fluoroscopy, wire advanced into the right atrium. Wire was advanced to the inferior vena cava. Wi re was subsequently pulled back to the right atrium. Tract dilated. Single lumen 5 [place] catheter wa s advanced over the wire. Trim length 49 cm. Catheter flushes and aspirates without difficulty. No im mediate or postprocedure complication. IMPRESSION: Successful left upper extremity PICC line placement with ultrasound guidance. POS: [facility]
[2018-05-28] MEDS ORDERED: Rifampin 300 MG CAP PO SCH (13:00)
[2018-05-28] MEDS: CEFAZOLIN/Water 2 GM/20 ML SYRINGE SLOW IVP SCH ×2 (14:12→23:08)
--- NOTE | 2018-05-28 15:18 | PDOC.PN ---
- Subjective Encounter Start Date: 05/28/18 Encounter Start Time: 08:30 afebrile overnight, no acute events. Wagner N/V/D/C, no CP or SOB Pt to PICC placement this morning all systems reviewed and neg x as above - Objective MAR Reviewed: Yes Vital Signs & Weight: Vital Signs (12 hours) Temp Pulse Resp BP BP Pulse Ox 05/28/18 11:00 98.4 F 78 22 H 130/78 93 L 05/28/18 08:00 97.7 F 75 20 94 L 05/28/18 07:54 78 134/78 05/28/18 07:44 97.7 F 75 20 134/78 94 L 05/28/18 04:20 98.7 F 78 20 132/80 92 L Weight Admit Weight 280 lb Weight 279 lb 15.8 oz I&O: 05/27/18 05/28/18 05/29/18 06:59 06:59 06:59 Intake Total 551 Balance 551 Result Diagrams: 05/28/18 03:34 Phys Exam - Physical Examination Constitutional: NAD HEENT: PERRLA, moist MMs, sclera anicteric, oral pharynx no lesions Neck: no nodes, no JVD, supple, full ROM Respiratory: no wheezing, no rales, no rhonchi, clear to auscultation bilateral Cardiovascular: RRR, no significant murmur, no rub Gastrointestinal: soft, non-tender, no distention, positive bowel sounds Musculoskeletal: edema present Neurological: non-focal, normal sensation, moves all 4 limbs Lymphatic: no nodes Psychiatric: normal affect, A&O x 3 Skin: no rash, normal turgor, cap refill <2 seconds Dx/Plan (1) MSSA (methicillin susceptible Staphylococcus aureus) infection Code(s): A49.01 - METHICILLIN SUSCEP STAPH INFECTION, UNSP SITE Status: Acute Comment: right knee, s/p 1st stage. Starting ancef and rifampin. IDto see. plan to Rx for 6-8 weeks, repeat cx after stopping abx for 10-14 days and if neg, proceed with reimpant. would continue chronic suppressive abx for minimum of 3-6 months after re-implant if not for life (2) Infected prosthetic knee joint Code(s): T84.59XA - INFECT/INFLM REACTION DUE TO OTH INTERNAL JOINT PROSTH, INIT ; Z96.659 - PRESENCE OF UNSPECIFIED ARTIFICIAL KNEE JOINT Status: Chronic Qualifiers: Encounter type: subsequent encounter Qualified Code(s): T84.59XD - Infection and inflammatory reaction due to other internal joint prosthesis, subsequent encounter; Z96.659 - Presence of unspecified artificial knee joint (3) HTN (hypertension) Code(s): I10 - ESSENTIAL (PRIMARY) HYPERTENSION Status: Chronic Qualifiers: Hypertension type: essential hypertension Comment: controlled, CCM (4) Status post revision of total replacement of left knee Code(s): Z96.652 - PRESENCE OF LEFT ARTIFICIAL KNEE JOINT Status: Chronic - Plan cont current plan of care, plan discussed w/ family, continue antibiotics, 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
--- NOTE | 2018-05-28 19:16 | CON ---
DATE OF CONSULTATION: 05/28/2018 REASON FOR CONSULTATION: Left knee inflammatory process with removal of arthroplasty. HISTORY OF PRESENT ILLNESS: A 62-year-old whom I had seen at the beginning of the year when he prese nted with a history of failed left knee arthroplasty. The patient had removal of the implant and had a revision surgery by Dr. Quinonez in September last year. Cultures from the site revealed a Staph aur eus, methicillin sensitive and the patient was treated for 6 weeks of IV Ancef and rifampin and then transitioned to oral Keflex rifampin and then suppressive Keflex, which had been taking until now whe n he developed worsening pain. This was after an episode where he had to walk a lot, I believe in [facility]. After few days of evaluation, Dr. Quinonez felt that the inflammatory process was likely the pa tient was admitted and patient underwent removal of the implant with a temporary spacer/implant place d. The plan is for revision again after completion of treatment. Currently, he appears in no distre ss, some mild to moderate pain, left knee. No headaches, visual symptoms, sore throat, odynophagia, dysphagia, no cough or sputum, chest pain, abdominal pain or diarrhea. No genitourinary symptoms. N o other joint symptoms except for his right knee does have a lot of degenerative arthritis as well an d no neurological symptoms. PAST MEDICAL HISTORY: Hypertension, obesity, osteoarthritis of the knee, previous left knee replacem ent with failure of the implant, infection by MSSA protracted treatment through a PICC line and on blake ppressive therapy until this event. PAST SURGICAL HISTORY: Umbilical hernia repair. ALLERGIES: PENICILLIN with not a true reaction of allergy. FAMILY HISTORY: Not remarkable. 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 Drinks occasionally. CURRENT MEDICATIONS: Hydrocodone, aspirin, cefazolin, 2 grams q.8 hours, rifampin. PHYSICAL EXAMINATION: VITAL SIGNS: Essentially normal. SKIN: Shows the left knee findings with usual postoperative appearance, does not have drains. The p atient has a PICC line left upper extremity. HEENT: Noncontributory. LUNGS: Clear. HEART: S1, S2, regular rate. ABDOMEN: Soft, nondistended or tender. No ascites. No bladder distention. EXTREMITIES: No joint inflammatory activity outside the area of involvement. Right knee with a lot of crepitus, but no inflammatory changes. Pulses 2+ dorsalis pedis. NEUROLOGIC: Nonfocal. LABORATORY DATA: White cell count 16.5, hemoglobin 13.5, platelets 313. Last chemistry is from 05/07 with creatinine 1.23, GFR at 60. CRP 1.52, albumin 4.5. Urinalysis from December was normal. C ultures pending, thus far no growth. The culture from 09/22 with Staphylococcus aureus, which was me thicillin susceptible. ASSESSMENT: Hypertension with prior Staph aureus infection of the arthroplasty, status post protract ed treatment now with recrudescence of pain and removal of the implant. Cultures are pending. The p atient will be treated assuming the same organism until proven otherwise. We will wait for the final results of cultures and decide which regimen patient will be receiving in the outpatient setting. P miguel angel for revision after completion of this phase of treatment.
[2018-05-28] MEDS ORDERED: Clopidogrel Bisulfate 75 MG TAB ONE (22:47)
[2018-05-28] MEDS: HYDROcodone/Acetaminophen 10/325 mg Tablet PO PRN (23:01)
[2018-05-28] MEDS: Rifampin 300 MG CAP PO SCH (23:31)
[2018-05-29 05:28] LABS: #Basophils 0.1 thou/uL (0.0-0.2); #Lymphocytes 1.5 thou/uL (1.20-3.40); #Monocytes 1.2 thou/uL (0.11-0.59); #Neutrophils 9.3 thou/uL (1.40-6.50); %Basophils 0.4 % (0.0-1.0); %Eosinophils 7.4 % (0.0-10.0); %Lymphocytes 11.3 % (21.0-51.0); %Monocytes 9.3 % (0.0-10.0); %Neutrophils 71.6 % (42.0-75.0); Hemoglobin 13.6 g/dL (14.0-18.0); Mean Corpuscular HGB CONC 32.6 g/dL (32.0-36.0); Mean Corpuscular Hemoglobin 30.9 pg (27.0-31.0); Mean Corpuscular Volume 94.7 fL (78.0-98.0); Mean Platelet Volume 7.8 fL (7.4-10.4); Platelet Count 272 thou/uL (130-400); Red Blood Cell (RBC) Count 4.41 mill/uL (4.70-6.10)
[2018-05-29] MEDS: Sodium Chloride 0.9% 1,000 ML IV SCH ×2 (05:30→15:06)
[2018-05-29 05:38] LABS: ALT (SGPT) 15 U/L (8-55); AST (SGOT) 15 U/L (5-34); Albumin 3.7 g/dL (3.4-4.8); Alkaline Phosphatase 72 U/L (40-150); Anion Gap 15 mmol/L (10-20); BUN (Urea Nitrogen) 18 mg/dL (8.4-25.7); Bilirubin, Total 1.3 mg/dL (0.2-1.2); Calc. Creatinine Clearance 123 mL/min (70-130); Calcium 8.9 mg/dL (7.8-10.44); Carbon Dioxide 22 mmol/L (23-31); Chloride 104 mmol/L (98-107); Estimated GFR-MDRD 66; Globulin 3.1 g/dL (2.4-3.5); Glucose 143 mg/dL (80-115); Magnesium 1.8 mg/dL (1.6-2.6); Potassium 3.7 mmol/L (3.5-5.1); Protein, Total 6.8 g/dL (5.8-8.1); Sodium 137 mmol/L (136-145)
[2018-05-29] MEDS: CEFAZOLIN/Water 2 GM/20 ML SYRINGE SLOW IVP SCH ×3 (06:07→23:57)
[2018-05-29] MEDS: Amlodipine 10 MG TAB PO SCH (07:32)
[2018-05-29] MEDS: Multivitamin W/ Minerals 1 TAB PO SCH (07:32)
[2018-05-29] MEDS: Aspirin 81 mg Enteric Coated Tablet PO SCH ×2 (07:32→23:58)
[2018-05-29] MEDS: Ferrous Gluconate 324 MG TAB PO SCH ×2 (07:32→23:58)
[2018-05-29] MEDS: Atorvastatin Calcium 40 MG TAB PO SCH (07:32)
[2018-05-29] MEDS: Lisinopril/Hydrochlorothiazide 20 mg/12.5 mg Tablet PO SCH (07:33)
[2018-05-29] MEDS: Senokot S 8.6-50 MG TAB PO SCH ×2 (07:33→23:58)
[2018-05-29] MEDS: Rifampin 300 MG CAP PO SCH (11:44)
[2018-05-29] MEDS: HYDROcodone/Acetaminophen 10/325 mg Tablet PO PRN ×2 (11:45→23:56)
--- NOTE | 2018-05-29 15:48 | PDOC.PN ---
- Subjective Encounter Start Date: 05/29/18 Encounter Start Time: 09:50 pt feel better, no F/C, no n/V/dC. PICC fntioning well. No f/C, no n/V/d/C, no CP or SOB All systems reviewed and neg x as above - Objective MAR Reviewed: Yes Vital Signs & Weight: Vital Signs (12 hours) Temp Pulse Resp BP BP Pulse Ox 05/29/18 11:45 98 F 70 24 H 151/80 H 95 05/29/18 08:00 98.8 F 76 16 94 L 05/29/18 07:33 70 136/76 05/29/18 07:32 80 136/76 05/29/18 07:10 98.8 F 76 16 136/76 94 L 05/29/18 04:00 98.2 F 70 16 142/81 H 92 L Weight Admit Weight 280 lb Weight 279 lb 15.8 oz I&O: 05/28/18 05/29/18 05/30/18 06:59 06:59 06:59 Intake Total 551 2580 Output Total 2700 Balance 551 -120 Result Diagrams: 05/29/18 04:49 05/29/18 04:49 Phys Exam - Physical Examination Constitutional: NAD HEENT: PERRLA, moist MMs, sclera anicteric, oral pharynx no lesions Neck: no nodes, no JVD, supple, full ROM Respiratory: no wheezing, no rales, no rhonchi, clear to auscultation bilateral Cardiovascular: RRR, no significant murmur, no rub Gastrointestinal: soft, non-tender, no distention, positive bowel sounds Musculoskeletal: pulses present, edema present left knee in brace Neurological: non-focal, normal sensation, moves all 4 limbs Lymphatic: no nodes Psychiatric: normal affect, A&O x 3 Skin: no rash, normal turgor, cap refill <2 seconds Dx/Plan (1) MSSA (methicillin susceptible Staphylococcus aureus) infection Code(s): A49.01 - METHICILLIN SUSCEP STAPH INFECTION, UNSP SITE Status: Acute Comment: right knee, s/p 1st stage. Starting ancef and rifampin. IDto see. plan to Rx for 6-8 weeks, repeat cx after stopping abx for 10-14 days and if neg, proceed with reimpant. would continue chronic suppressive abx for minimum of 3-6 months after re-implant if not for life (2) Infected prosthetic knee joint Code(s): T84.59XA - INFECT/INFLM REACTION DUE TO OTH INTERNAL JOINT PROSTH, INIT ; Z96.659 - PRESENCE OF UNSPECIFIED ARTIFICIAL KNEE JOINT Status: Chronic Qualifiers: Encounter type: subsequent encounter Qualified Code(s): T84.59XD - Infection and inflammatory reaction due to other internal joint prosthesis, subsequent encounter; Z96.659 - Presence of unspecified artificial knee joint (3) HTN (hypertension) Code(s): I10 - ESSENTIAL (PRIMARY) HYPERTENSION Status: Chronic Qualifiers: Hypertension type: essential hypertension Comment: controlled, CCM (4) Status post revision of total replacement of left knee Code(s): Z96.652 - PRESENCE OF LEFT ARTIFICIAL KNEE JOINT Status: Chronic - Plan * .
--- NOTE | 2018-05-29 17:21 | PRG ---
DATE OF SERVICE: 05/29/2018 SUBJECTIVE: Feeling well, minimal pain. Had a little bit of dyspnea last night, but not anymore. N o cough, no chest pain, no abdominal pain or diarrhea. No genitourinary symptoms. He has been afebr ile. PHYSICAL EXAMINATION: VITAL SIGNS: O2 sats ranging from 92%-94%-95%, BP 130/74, pulse 71. GENERAL APPEARANCE: Awake, alert, oriented. LUNGS: Clear. HEART: S1, S2, regular rate. ABDOMEN: Soft. MUSCULOSKELETAL: Left knee in a splint. NEUROLOGIC: Nonfocal. LABORATORY DATA: White cell count down to 13,000, hemoglobin 13.6, platelets 272. Creatinine 1.13. Microbiology with negative cultures from the knee aspirate from 05/22/2018, thus far negative from t he knee tissue from 05/27/2018. ASSESSMENT AND DISCUSSION: Hypertension, prior Staph aureus infection, arthroplasty site, status pos t protracted treatment now with recrudescence of pain, removal of implant with negative cultures. Pa tient will be treated assuming the same organism. 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 The patient is scheduled for revision after completion of this t reatment.
[2018-05-30] MEDS: Sodium Chloride 0.9% 1,000 ML IV SCH
[2018-05-30] MEDS: Rifampin 300 MG CAP PO SCH ×2 (00:07→09:50)
[2018-05-30 04:24] LABS: Hemoglobin 13.3 g/dL (14.0-18.0); Mean Corpuscular HGB CONC 33.4 g/dL (32.0-36.0); Mean Corpuscular Hemoglobin 31.6 pg (27.0-31.0); Mean Corpuscular Volume 94.4 fL (78.0-98.0); Mean Platelet Volume 7.3 fL (7.4-10.4); Platelet Count 289 thou/uL (130-400); RBC Distribution Width 12.9 % (11.5-14.5); Red Blood Cell (RBC) Count 4.22 mill/uL (4.70-6.10); White Blood Cell (WBC) Count 14.7 thou/uL (4.8-10.8)
[2018-05-30 04:50] VITALS: BP 132/81
[2018-05-30] MEDS: CEFAZOLIN/Water 2 GM/20 ML SYRINGE SLOW IVP SCH (05:54)
[2018-05-30] MEDS: HYDROcodone/Acetaminophen 10/325 mg Tablet PO PRN (07:49)
[2018-05-30] MEDS: Amlodipine 10 MG TAB PO SCH (07:51)
[2018-05-30] MEDS: Lisinopril/Hydrochlorothiazide 20 mg/12.5 mg Tablet PO SCH (07:51)
[2018-05-30] MEDS: Aspirin 81 mg Enteric Coated Tablet PO SCH (07:52)
[2018-05-30] MEDS: Atorvastatin Calcium 40 MG TAB PO SCH (07:52)
[2018-05-30] MEDS: Senokot S 8.6-50 MG TAB PO SCH (07:53)
[2018-05-30] MEDS: Multivitamin W/ Minerals 1 TAB PO SCH (07:53)
[2018-05-30] MEDS: Ferrous Gluconate 324 MG TAB PO SCH (07:54)
[2018-05-30 10:03] VITALS: TEMP 98.5
== END 2018-05-30 10:30 | disposition home or self-care (01) | DRG 465 ==
LOC: SURG A 08:12 → SURG B 15:56
PROVIDERS: ADMIT Orthopaedic Surgery; ATTEND Orthopaedic Surgery
PROC: 0SPD0JZ Removal of Synthetic Substitute from Left Knee Joint, Open Approach (ICD-10-PCS; principal; 2018-05-27)
PROC: 0SHD08Z Insertion of Spacer into Left Knee Joint, Open Approach (ICD-10-PCS; 2018-05-27)
PROC: 02H633Z Insertion of Infusion Device into Right Atrium, Percutaneous Approach (ICD-10-PCS; 2018-05-28)
PROC: B244ZZZ Ultrasonography of Right Heart (ICD-10-PCS; 2018-05-28)
DX: T84.54XA Infection and inflammatory reaction due to internal left knee prosthesis, initial encounter (principal); B95.61 Methicillin susceptible Staphylococcus aureus infection as the cause of diseases classified elsewhere; I10 Essential (primary) hypertension; E66.9 Obesity, unspecified; Z88.0 Allergy status to penicillin; F17.290 Nicotine dependence, other tobacco product, uncomplicated; F17.211 Nicotine dependence, cigarettes, in remission; Z79.82 Long term (current) use of aspirin; Z68.34 Body mass index [BMI] 34.0-34.9, adult
CPT/HCPCS: 36415; 36569; 80053; 83735; 85027; 86140; 87070; 87205; 88304; C1713; C1751; C1769; C1776; G8978-GP-CL; G8979-GP-CJ; J0670; J1100; J1644; J2001; J2250; J2704; J2795; J3010; J3260; J3370; J7050

== ENCOUNTER 2020-03-20 17:44 | Emergency (ER) | payer BC ==
[2020-03-20] MEDS ORDERED: Ibuprofen 200 MG TAB ONE (18:03)
[2020-03-20] MEDS ORDERED: Lidocaine 1% (PF) 30 ML VIAL ONE (18:03)
[2020-03-20] MEDS ORDERED: Adacel (T-DAP) 0.5 ML SYRINGE ONE (18:06)
--- NOTE | 2020-03-20 19:42 | RAD ---
THREE VIEWS LEFT HAND: History: Patient cut the third digit while using a saw. Comparison: None FINDINGS: No fracture, cortical irregularity of periosteal reaction with regards to the distal aspect of the th ird digit of the left hand. There is a persistent hyperdensity along the distal aspect of the first metacarpal compatible with a 5 mm radiopaque foreign body. IMPRESSION: 1. No fracture. 2. No radiopaque foreign body along the distal aspect of the third digit. However, there is a persist ent radiopaque foreign body along the distal aspect of the first metacarpal. Correlate clinically. POS: [facility]
== END 2020-03-20 19:02 | disposition home or self-care (01) ==
LOC: ERS 17:44
DX: S61.213A Laceration without foreign body of left middle finger without damage to nail, initial encounter (principal); I10 Essential (primary) hypertension; E78.5 Hyperlipidemia, unspecified; F17.210 Nicotine dependence, cigarettes, uncomplicated; F17.290 Nicotine dependence, other tobacco product, uncomplicated; Z23 Encounter for immunization; W29.3XXA Contact with powered garden and outdoor hand tools and machinery, initial encounter
CPT/HCPCS: 12001; 90471; 90715; J2001

== ENCOUNTER 2020-11-30 09:59 | Outpatient (CLI) | payer BC, OTHER ==
--- NOTE | 2020-11-30 11:25 | RAD ---
Lumbar spine 2 views: 11/30/2020 HISTORY: Right-sided sciatica, severe pain down the right leg FINDINGS: There is multilevel disc space narrowing, degenerative endplate change, and anterior osteop hyte formation which includes the L1-2, L2-3, L3-4, L4-5, and L5-S1 levels. Posterior osteophyte noted at L1-2, L2-3, and L4-5. There is multilevel lower lumbar spine facet hypertrophy. There is pro minent lateral osteophyte formation at multiple levels both right and left of midline, most prominent on the left at L1-2 and L2-3 and on the right at L4-5. No displaced fracture. IMPRESSION: Prominent multilevel degenerative change of the lumbar spine.
== END 2020-11-30 10:00 | disposition home or self-care (01) ==
LOC: BICRAD 09:59
PROVIDERS: ATTEND Physician Assistant
DX: M54.31 Sciatica, right side (principal); M47.816 Spondylosis without myelopathy or radiculopathy, lumbar region; M47.817 Spondylosis without myelopathy or radiculopathy, lumbosacral region
CPT/HCPCS: 72100

== ENCOUNTER 2023-08-22 08:16 | Outpatient (CLI) | payer MEDICARE, BC ==
[2023-08-22 09:26] LABS: #Basophils 0.1 10x3/uL (0.0-0.2); #Eosinphils 0.4 10x3/uL (0.0-0.5); #Monocytes 0.8 10x3/uL (0.0-1.1); #Neutrophils 5.9 10x3/uL (1.5-8.4); %Basophils 0.7 % (0.0-2.0); %Eosinophils 4.4 % (0.0-6.0); %Lymphocytes 19.8 % (18.0-47.0); %Monocytes 9.3 % (0.0-10.0); %Neutrophils 65.6 % (40.0-75.0); Hematocrit 45.9 % (38.8-50.0); Mean Corpuscular HGB CONC 32.7 g/dL (32.0-36.0); Mean Corpuscular Hemoglobin 30.2 pg (27.0-33.0); Mean Corpuscular Volume 92.5 fl (81.2-95.1); Mean Platelet Volume 10.8 fl (7.4-10.4); Platelet Count 342 10x3/uL (150-450); RBC Distribution Width 14.3 % (11.5-14.5); Red Blood Cell (RBC) Count 4.96 10x6/uL (4.32-5.72); White Blood Cell (WBC) Count 8.9 10x3/uL (3.5-10.5)
[2023-08-22 09:38] LABS: Prothrombin Time 10.6 sec (9.5-12.1)
[2023-08-22 10:03] LABS: Anion Gap 16 mmol/L (10-20); BUN (Urea Nitrogen) 19 mg/dL (8.4-25.7); Calc. Creatinine Clearance 0 mL/min (70-130); Calcium 10.1 mg/dL (7.8-10.44); Carbon Dioxide 24 mmol/L (23-31); Chloride 106 mmol/L (98-107); Estimated GFR 63; Glucose 112 mg/dL (80-115); Potassium 4.3 mmol/L (3.5-5.1); Sodium 142 mmol/L (136-145)
== END 2023-08-22 08:17 | disposition home or self-care (01) ==
LOC: LABBT 08:16
PROVIDERS: ATTEND Orthopaedic Surgery
DX: Z01.818 Encounter for other preprocedural examination (principal); M17.11 Unilateral primary osteoarthritis, right knee
CPT/HCPCS: 80048; 85025; 85610; 87081; 93005; 93010

== ENCOUNTER 2023-08-26 05:34 | Observation (INO) | payer MEDICARE, BC ==
[2023-08-22 09:00] VITALS: BMI 37.2
[2023-08-26] MEDS ORDERED: Vancomycin (BATCH) 2 GM in Premix 1 BAG IVPB SCH (06:00)
[2023-08-26] MEDS ORDERED: Tranexamic Acid 1,000 MG/10 ML VIAL ONE (06:02)
[2023-08-26] MEDS ORDERED: Sodium Chloride 0.9% 100 ML ONE ×2 (06:02→06:51)
[2023-08-26] MEDS ORDERED: Bupivacaine PF 0.5% 30 ML VIAL ONE ×2 (06:26→06:28)
[2023-08-26] MEDS ORDERED: EPINEPHrine 1 MG/ML VIAL ONE (06:27)
[2023-08-26] MEDS ORDERED: Lidocaine 1% (PF) 30 ML VIAL ONE (06:28)
[2023-08-26] MEDS ORDERED: fentaNYL 50 mcg/mL 1 mL Vial ONE ×4 (06:28→11:06)
[2023-08-26] MEDS ORDERED: Midazolam HCl 2 mg/2 ml Vial ONE ×2 (06:28→06:32)
[2023-08-26] MEDS ORDERED: PROPOFOL 20 ML ONE (06:32)
[2023-08-26] MEDS ORDERED: fentaNYL PF 100 MCG/2 ML SYRINGE ONE (06:32)
[2023-08-26] MEDS ORDERED: Lidocaine 1% PF 5 ML VIAL ONE ×2 (06:33→07:49)
[2023-08-26] MEDS ORDERED: CEFAZOLIN 2 GM VIAL ONE (06:51)
[2023-08-26] MEDS ORDERED: diphenhydrAMINE 25 MG CAP PO PRN (07:06)
[2023-08-26] MEDS ORDERED: Promethazine HCl 25 MG/ML VIAL IM PRN ×3 (07:06→08:40)
[2023-08-26] MEDS ORDERED: HYDROcodone/Acetaminophen 10/325 mg Tablet PO PRN ×3 (07:06→08:00)
[2023-08-26] MEDS ORDERED: Acetaminophen 325 MG TAB PO PRN (07:06)
[2023-08-26] MEDS ORDERED: Zolpidem Tartrate 5 MG TAB PO PRN ×2 (07:06→08:00)
[2023-08-26] MEDS ORDERED: Ondansetron PF 4 MG/2 ML Vial IVP PRN ×2 (07:06→08:00)
[2023-08-26] MEDS ORDERED: fentaNYL 50 mcg/mL 1 mL Vial SLOW IVP PRN ×2 (07:06→07:46)
[2023-08-26] MEDS ORDERED: PROPOFOL 0 ML ONE (07:13)
[2023-08-26] MEDS ORDERED: Dexamethasone 20 MG/5 ML VIAL ONE (07:49)
[2023-08-26] MEDS ORDERED: Ondansetron PF 4 MG/2 ML Vial ONE ×2 (07:49→08:30)
[2023-08-26] MEDS ORDERED: PROPOFOL 200 MG/20 ML VIAL ONE (07:49)
[2023-08-26] MEDS ORDERED: traMADol HCl 50 MG TAB PO PRN ×2 (08:00)
[2023-08-26] MEDS ORDERED: Ropivacaine 0.2% 550 ML 550 ML NERVE BLCK SCH (08:00)
[2023-08-26] MEDS ORDERED: HYDROmorphone 2 MG/ML VIAL ONE (08:25)
[2023-08-26] MEDS ORDERED: Dexamethasone 4 mg/ml Vial ONE (08:30)
[2023-08-26] MEDS ORDERED: HYDROmorphone 2 MG/ML VIAL SLOW IVP PRN (08:40)
[2023-08-26] MEDS ORDERED: Meperidine HCl/PF 25 MG/ML VIAL SLOW IVP PRN (08:40)
[2023-08-26] MEDS ORDERED: Ondansetron HCl/PF 4 MG/2 ML Vial IVP PRN (08:40)
[2023-08-26] MEDS ORDERED: ETODOLAC 500 MG PO SCH (09:00)
[2023-08-26] MEDS: Sodium Chloride 0.9% 1,000 ML IV SCH ×2 (12:03→19:03)
[2023-08-26] MEDS: Amlodipine 10 MG TAB PO SCH (12:04)
[2023-08-26] MEDS: Ketorolac Tromethamine 30 MG/ML VIAL IVP SCH ×3 (12:19→23:15)
[2023-08-26] MEDS: Lisinopril 20 MG TAB PO SCH (12:19)
[2023-08-26] MEDS: Ferrous Gluconate 324 MG TAB PO SCH ×2 (12:20→20:50)
[2023-08-26] MEDS: Multivitamin W/ Minerals 1 TAB PO SCH (12:20)
[2023-08-26] MEDS: HYDROcodone/Acetaminophen 10/325 mg Tablet PO PRN ×2 (12:20→16:30)
[2023-08-26] MEDS: Senokot S 8.6-50 MG TAB PO SCH ×2 (12:21→20:50)
[2023-08-26] MEDS: Hydrochlorothiazide 25 MG TAB PO SCH (12:21)
[2023-08-26] MEDS: Aspirin 81 mg Enteric Coated Tablet PO SCH ×2 (12:21→20:49)
[2023-08-26] MEDS ORDERED: Ketorolac Tromethamine 30 MG/ML VIAL IVP SCH (14:00)
[2023-08-26] MEDS: CEFAZOLIN 2 GM in Sodium Chloride 0.9% 100 ML IVPB SCH ×2 (14:38→23:16)
[2023-08-26] MEDS ORDERED: Atorvastatin Calcium 40 MG TAB PO SCH (21:00)
[2023-08-27 05:20] LABS: Hematocrit 39.9 % (42.0-52.0); Hemoglobin 12.7 g/dL (14.0-18.0); Mean Corpuscular HGB CONC 31.8 g/dL (32.0-36.0); Mean Corpuscular Hemoglobin 30.1 pg (27.0-31.0); Mean Corpuscular Volume 94.5 fl (78.0-98.0); Mean Platelet Volume 10.6 fL (7.4-10.4); Platelet Count 269 10x3/uL (130-400); RBC Distribution Width 14.3 % (11.5-14.5); Red Blood Cell (RBC) Count 4.22 mill/uL (4.70-6.10); White Blood Cell (WBC) Count 11.7 10x3/uL (4.8-10.8)
[2023-08-27] MEDS: Ketorolac Tromethamine 30 MG/ML VIAL IVP SCH (05:34)
[2023-08-27 08:07] VITALS: TEMP 98.1
[2023-08-27] MEDS: Sodium Chloride 0.9% 1,000 ML IV SCH (08:32)
[2023-08-27 08:57] VITALS: BP 126/69
[2023-08-27] MEDS: Senokot S 8.6-50 MG TAB PO SCH (09:51)
[2023-08-27] MEDS: Amlodipine 10 MG TAB PO SCH (09:51)
[2023-08-27] MEDS: Lisinopril 20 MG TAB PO SCH (09:51)
[2023-08-27] MEDS: Hydrochlorothiazide 25 MG TAB PO SCH (09:52)
[2023-08-27] MEDS: Multivitamin W/ Minerals 1 TAB PO SCH (09:53)
[2023-08-27] MEDS: Ferrous Gluconate 324 MG TAB PO SCH (09:53)
[2023-08-27] MEDS: Aspirin 81 mg Enteric Coated Tablet PO SCH (09:53)
== END 2023-08-27 10:47 | disposition home or self-care (01) ==
LOC: SDC 05:34 → SURG B 07:09
PROVIDERS: ADMIT Orthopaedic Surgery; ATTEND Orthopaedic Surgery
PROC: 0SRC0JZ Replacement of Right Knee Joint with Synthetic Substitute, Open Approach (ICD-10-PCS; principal; 2023-08-26)
DX: M17.11 Unilateral primary osteoarthritis, right knee (principal); I10 Essential (primary) hypertension; E78.5 Hyperlipidemia, unspecified; F17.290 Nicotine dependence, other tobacco product, uncomplicated; F17.210 Nicotine dependence, cigarettes, uncomplicated; E66.9 Obesity, unspecified; Z68.36 Body mass index [BMI] 36.0-36.9, adult; Z79.899 Other long term (current) drug therapy; Z96.652 Presence of left artificial knee joint; Z88.0 Allergy status to penicillin; Z88.8 Allergy status to other drugs, medicaments and biological substances
CPT/HCPCS: 27447; 73560; 85027; 97110; 97116 ×2; 97530; A4306; C1776; J0171; J3010; J3370; 36415; J1100; J1170; J1885; J2001; J2250; J2405; J2704; J2795; J3490; S0020

== ENCOUNTER 2025-06-13 22:56 | Emergency (ER) | payer MEDICARE, BC ==
[2025-06-13] MEDS ORDERED: Fluorescein Opthalmic Strip ONE (23:17)
[2025-06-13] MEDS ORDERED: Proparacaine 0.5% Opth 15 ML BOT ONE ×2 (23:18)
== END 2025-06-14 03:13 | disposition short-term general hospital (02) ==
LOC: ERS 22:56
DX: H54.61 Unqualified visual loss, right eye, normal vision left eye (principal); I10 Essential (primary) hypertension; E78.5 Hyperlipidemia, unspecified; F17.210 Nicotine dependence, cigarettes, uncomplicated; F17.290 Nicotine dependence, other tobacco product, uncomplicated; Z79.899 Other long term (current) drug therapy
CPT/HCPCS: 99284